=== PATIENT | female | born 1940 | race Caucasian/White ===

== ENCOUNTER 2018-07-23 16:59 | Outpatient (CLI) | payer MEDICARE, BC ==
--- NOTE | 2018-07-23 18:07 | RAD ---
TWO VIEWS CHEST: 07/23/18 HISTORY: Acute bronchospasm, bronchitis. AP and lateral views of the chest is obtained on 07/23/18. Two views chest demonstrate mild cardiomegaly. No evidence of acute intrathoracic abnormality seen. N o evidence of effusions, pneumonia, or pneumothorax seen. IMPRESSION: Cardiomegaly, otherwise unremarkable two views chest. POS: [facility]
== END 2018-07-23 17:00 | disposition home or self-care (01) ==
LOC: NAV RAD 16:59
PROVIDERS: ATTEND Family Medicine
DX: J20.9 Acute bronchitis, unspecified (principal); I51.7 Cardiomegaly
CPT/HCPCS: 71046

== ENCOUNTER 2019-10-03 14:00 | Emergency (ER) | payer MEDICARE, BC | END 2019-10-03 15:18 | disposition home or self-care (01) | LOC: NAV ERS 14:00 | DX: J02.9 Acute pharyngitis, unspecified (principal); E78.5 Hyperlipidemia, unspecified; E66.9 Obesity, unspecified; E78.00 Pure hypercholesterolemia, unspecified; E03.9 Hypothyroidism, unspecified | CPT/HCPCS: 87081; 87430; 99283 ==

== ENCOUNTER 2019-10-06 10:41 | Outpatient (CLI) | payer MEDICARE, BC ==
--- NOTE | 2019-10-06 10:55 | RAD ---
XR Chest Pa Lat STANDARD HISTORY: Bronchitis COMPARISON: 07/23/2018 FINDINGS: The heart size is enlarged. No focal areas of consolidation, pneumothoraces, yeison pulmonar y edema or pleural effusions are seen. There are degenerative changes in the spine. IMPRESSION: No radiographic evidence of acute cardiopulmonary process.
== END 2019-10-06 10:42 | disposition home or self-care (01) ==
LOC: NAV RAD 10:41
PROVIDERS: ATTEND Family Medicine
DX: J20.9 Acute bronchitis, unspecified (principal)
CPT/HCPCS: 71046

== ENCOUNTER 2020-11-26 11:51 | Outpatient (CLI) | payer MEDICARE, BC ==
--- NOTE | 2020-11-26 12:05 | RAD ---
EXAM: Chest PA and lateral: HISTORY: Night sweats COMPARISON: 10/06/2019 FINDINGS: Heart: Normal cardiac silhouette Aorta: Unremarkable Pulmonary vessels: Normal Costophrenic angles: Costophrenic angles are clear. Lungs: No consolidation or masses. Pneumothorax: No pneumothorax Osseous structures: No osseous abnormalities IMPRESSION: No acute cardiopulmonary process.
== END 2020-11-26 11:52 | disposition home or self-care (01) ==
LOC: NAV RAD 11:51
PROVIDERS: ATTEND Family Medicine
DX: R61 Generalized hyperhidrosis (principal)
CPT/HCPCS: 71046

== ENCOUNTER 2023-04-16 09:30 | Emergency (ER) | payer MEDICARE, BC ==
[2023-04-16 09:59] LABS: #Basophils 0.1 thou/uL (0.0-0.2); #Eosinphils 0.3 thou/uL (0.0-0.7); #Lymphocytes 2.6 thou/uL (1.20-3.40); #Monocytes 0.8 thou/uL (0.11-0.59); #Neutrophils 5.4 thou/uL (1.40-6.50); %Basophils 1.5 % (0.0-1.0); %Eosinophils 2.8 % (0.0-10.0); %Lymphocytes 28.1 % (21.0-51.0); %Monocytes 9.2 % (0.0-10.0); %Neutrophils 58.5 % (42.0-75.0); Hemoglobin 11.8 g/dL (12.0-16.0); Mean Corpuscular HGB CONC 32.7 g/dL (32.0-36.0); Mean Corpuscular Hemoglobin 31.2 pg (27.0-31.0); Mean Corpuscular Volume 95.4 fl (78.0-98.0); Mean Platelet Volume 6.4 fL (7.4-10.4); Platelet Count 466 10x3/uL (130-400); RBC Distribution Width 13.1 % (11.5-14.5); Red Blood Cell (RBC) Count 3.79 mill/uL (4.20-5.40); White Blood Cell (WBC) Count 9.2 10x3/uL (4.8-10.8)
[2023-04-16 10:01] LABS: PTT 29.5 sec (22.9-36.1); Prothrombin Time 13.9 sec (12.0-14.7)
[2023-04-16 10:13] LABS: ALT (SGPT) 26 U/L (8-55); AST (SGOT) 32 U/L (5-34); Albumin 3.7 g/dL (3.4-4.8); Alkaline Phosphatase 204 U/L (40-110); Anion Gap 20 mmol/L (10-20); BUN (Urea Nitrogen) 42 mg/dL (9.8-20.1); Bilirubin, Total 0.7 mg/dL (0.2-1.2); CK (CPK) 36 U/L (29-168); Calc. Creatinine Clearance 0 mL/min (70-130); Calcium 9.3 mg/dL (7.8-10.44); Carbon Dioxide 11 mmol/L (23-31); Chloride 106 mmol/L (98-107); Estimated GFR 25; Globulin 3.7 g/dL (2.4-3.5); Glucose 104 mg/dL (83-110); Lipase 252 U/L (8-78); Potassium 5.8 mmol/L (3.5-5.1); Protein, Total 7.4 g/dL (5.8-8.1); Sodium 131 mmol/L (136-145)
[2023-04-16 10:26] LABS: CKMB 1.7 ng/mL (0-6.6)
[2023-04-16] MEDS ORDERED: Dextrose 10% in Water 250 ML ONE (11:07)
[2023-04-16] MEDS ORDERED: Insulin Regular 300 UNITS/3 ML VIAL ONE (11:07)
[2023-04-16] MEDS ORDERED: Sodium Chloride 0.9% 1,000 ML ONE (11:39)
== END 2023-04-16 13:50 | disposition critical access hospital (66) ==
LOC: NAV ERS 09:30
DX: N28.9 Disorder of kidney and ureter, unspecified (principal); R40.4 Transient alteration of awareness; E87.5 Hyperkalemia; R77.8 Other specified abnormalities of plasma proteins; I95.9 Hypotension, unspecified; E03.9 Hypothyroidism, unspecified; E78.00 Pure hypercholesterolemia, unspecified; I10 Essential (primary) hypertension; E66.9 Obesity, unspecified; Z79.899 Other long term (current) drug therapy
CPT/HCPCS: 36416; 71045; 82550; 82553; 83605; 83690; 83735; 84443; 84480; 84484; 85025; 85610; 85730; 87040; 93005; 96361; 96374; J1815; J7050

== ENCOUNTER 2023-05-31 11:35 | Inpatient (IN) | payer MEDICARE, BC ==
[2023-05-31] MEDS ORDERED: Calcium Carbonate 500 MG ChewTAB PO PRN (17:19)
[2023-05-31] MEDS ORDERED: Ondansetron ODT 4 MG TAB PO PRN (17:19)
[2023-05-31] MEDS ORDERED: Senokot S 8.6-50 MG TAB PO PRN (17:19)
[2023-05-31] MEDS ORDERED: Acetaminophen 325 MG TAB PO PRN (17:24)
[2023-05-31] MEDS ORDERED: Nitroglycerin 0.4 MG TAB (25 Tab Bottle) SL PRN (17:24)
[2023-05-31] MEDS ORDERED: Polyethylene Glycol 3350 17 GM Packet PO PRN (17:38)
[2023-05-31] MEDS ORDERED: Melatonin 3 MG TAB PO PRN (17:43)
[2023-05-31] MEDS: Famotidine 20 MG TAB PO SCH (20:33)
[2023-05-31] MEDS ORDERED: Atorvastatin Calcium 20 MG TAB PO SCH ×2 (21:00→21:35)
[2023-05-31] MEDS ORDERED: Hydrocortisone/Pramoxine (Proctofoam HC) 10 GM BOX PR PRN (21:39)
[2023-06-01] MEDS ORDERED: Levothyroxine Sodium 112 MCG TAB PO SCH (06:00)
[2023-06-01 06:04] LABS: #Basophils 0.2 thou/uL (0.0-0.2); #Eosinphils 0.7 thou/uL (0.0-0.7); #Lymphocytes 3.6 thou/uL (1.20-3.40); #Neutrophils 5.8 thou/uL (1.40-6.50); %Basophils 1.6 % (0.0-1.0); %Eosinophils 5.8 % (0.0-10.0); %Monocytes 9.2 % (0.0-10.0); %Neutrophils 51.4 % (42.0-75.0); Hemoglobin 10.3 g/dL (12.0-16.0); Mean Corpuscular HGB CONC 32.4 g/dL (32.0-36.0); Mean Corpuscular Hemoglobin 31.1 pg (27.0-31.0); Mean Corpuscular Volume 96.1 fl (78.0-98.0); Mean Platelet Volume 8.2 fL (7.4-10.4); Platelet Count 198 10x3/uL (130-400); RBC Distribution Width 13.3 % (11.5-14.5); Red Blood Cell (RBC) Count 3.32 mill/uL (4.20-5.40); White Blood Cell (WBC) Count 11.2 10x3/uL (4.8-10.8)
[2023-06-01 06:19] LABS: ALT (SGPT) 11 U/L (8-55); AST (SGOT) 16 U/L (5-34); Albumin 3.1 g/dL (3.4-4.8); Alkaline Phosphatase 108 U/L (40-110); Anion Gap 14 mmol/L (10-20); BUN (Urea Nitrogen) 12 mg/dL (9.8-20.1); Bilirubin, Total 0.4 mg/dL (0.2-1.2); CRP (Inflammatory) 1.46 mg/dL (= or < 0.5); Calc. Creatinine Clearance 92 mL/min (70-130); Carbon Dioxide 23 mmol/L (23-31); Chloride 106 mmol/L (98-107); Estimated GFR 57; Globulin 3.4 g/dL (2.4-3.5); Glucose 89 mg/dL (83-110); Potassium 4.5 mmol/L (3.5-5.1); Protein, Total 6.5 g/dL (5.8-8.1); Sodium 138 mmol/L (136-145)
[2023-06-01] MEDS: Cyanocobalamin (Vitamin B-12) 1,000 MCG TAB PO SCH (08:49)
[2023-06-01] MEDS: Mesalamine DR 400 mg Capsule PO SCH (08:49)
[2023-06-01] MEDS: Loratadine 10 MG TAB PO SCH (08:49)
[2023-06-01] MEDS: Aspirin 81 mg Enteric Coated Tablet PO SCH (08:52)
[2023-06-01] MEDS ORDERED: Polyethylene Glycol 3350 17 GM Packet PO SCH (09:00)
[2023-06-01] MEDS ORDERED: LevoFLOXacin 750 MG TAB PO SCH ×3 (09:00)
[2023-06-01] MEDS ORDERED: Ondansetron ODT 4 MG TAB SL PRN (14:15)
[2023-06-01] MEDS: Atorvastatin Calcium 40 MG TAB PO SCH (20:37)
[2023-06-01] MEDS: Famotidine 20 MG TAB PO SCH (20:37)
[2023-06-02] MEDS: Levothyroxine Sodium 125 MCG TAB PO SCH (05:11)
[2023-06-02] MEDS: Aspirin 81 mg Enteric Coated Tablet PO SCH (09:43)
[2023-06-02] MEDS: Mesalamine DR 400 mg Capsule PO SCH (09:43)
[2023-06-02] MEDS: Loratadine 10 MG TAB PO SCH (09:43)
[2023-06-02] MEDS: Cyanocobalamin (Vitamin B-12) 1,000 MCG TAB PO SCH (09:44)
[2023-06-02] MEDS ORDERED: Losartan 25 MG TAB PO SCH (11:30)
[2023-06-02] MEDS: Famotidine 20 MG TAB PO SCH (20:23)
[2023-06-02] MEDS: Atorvastatin Calcium 40 MG TAB PO SCH (20:24)
[2023-06-02] MEDS: Metoprolol Tartrate 25 MG TAB PO SCH (20:24)
[2023-06-03 01:24] LABS: #Basophils 0.1 thou/uL (0.0-0.2); #Eosinphils 0.7 thou/uL (0.0-0.7); #Lymphocytes 4.3 thou/uL (1.20-3.40); #Monocytes 0.9 thou/uL (0.11-0.59); #Neutrophils 4.2 thou/uL (1.40-6.50); %Basophils 1.3 % (0.0-1.0); %Eosinophils 6.5 % (0.0-10.0); %Lymphocytes 42.1 % (21.0-51.0); %Monocytes 9.1 % (0.0-10.0); Hemoglobin 10.1 g/dL (12.0-16.0); Mean Corpuscular HGB CONC 31.6 g/dL (32.0-36.0); Mean Corpuscular Hemoglobin 30.9 pg (27.0-31.0); Mean Corpuscular Volume 97.8 fl (78.0-98.0); Mean Platelet Volume 6.6 fL (7.4-10.4); Platelet Count 301 10x3/uL (130-400); RBC Distribution Width 13.5 % (11.5-14.5); Red Blood Cell (RBC) Count 3.27 mill/uL (4.20-5.40); White Blood Cell (WBC) Count 10.3 10x3/uL (4.8-10.8)
[2023-06-03] MEDS: LevoFLOXacin 750 MG TAB PO SCH (05:12)
[2023-06-03] MEDS: Levothyroxine Sodium 125 MCG TAB PO SCH (05:12)
[2023-06-03] MEDS: Cyanocobalamin (Vitamin B-12) 1,000 MCG TAB PO SCH (09:00)
[2023-06-03] MEDS: Mesalamine DR 400 mg Capsule PO SCH (09:00)
[2023-06-03] MEDS: Multivitamins CHEW w/Iron Tablet PO SCH (09:01)
[2023-06-03] MEDS: Losartan 25 MG TAB PO SCH (09:01)
[2023-06-03] MEDS: Aspirin 81 mg Enteric Coated Tablet PO SCH (09:01)
[2023-06-03] MEDS: Metoprolol Tartrate 25 MG TAB PO SCH ×2 (09:01→20:37)
[2023-06-03] MEDS: Loratadine 10 MG TAB PO SCH (09:01)
[2023-06-03] MEDS: Atorvastatin Calcium 40 MG TAB PO SCH (20:37)
[2023-06-03] MEDS: Famotidine 20 MG TAB PO SCH (20:37)
[2023-06-04] MEDS: Levothyroxine Sodium 125 MCG TAB PO SCH (06:01)
[2023-06-04] MEDS: LevoFLOXacin 750 MG TAB PO SCH (06:01)
[2023-06-04] MEDS: Multivitamins CHEW w/Iron Tablet PO SCH (08:10)
[2023-06-04] MEDS: Losartan 25 MG TAB PO SCH (08:10)
[2023-06-04] MEDS: Mesalamine DR 400 mg Capsule PO SCH (08:10)
[2023-06-04] MEDS: Aspirin 81 mg Enteric Coated Tablet PO SCH (08:11)
[2023-06-04] MEDS: Loratadine 10 MG TAB PO SCH (08:11)
[2023-06-04] MEDS: Metoprolol Tartrate 25 MG TAB PO SCH ×2 (08:11→21:01)
[2023-06-04] MEDS: Cyanocobalamin (Vitamin B-12) 1,000 MCG TAB PO SCH (08:12)
[2023-06-04] MEDS: Atorvastatin Calcium 40 MG TAB PO SCH (21:01)
[2023-06-04] MEDS: Famotidine 20 MG TAB PO SCH (21:01)
[2023-06-05] MEDS: LevoFLOXacin 750 MG TAB PO SCH (05:48)
[2023-06-05] MEDS: Levothyroxine Sodium 125 MCG TAB PO SCH (06:06)
[2023-06-05] MEDS: Cyanocobalamin (Vitamin B-12) 1,000 MCG TAB PO SCH (09:28)
[2023-06-05] MEDS: Multivitamins CHEW w/Iron Tablet PO SCH (09:28)
[2023-06-05] MEDS: Losartan 25 MG TAB PO SCH (09:29)
[2023-06-05] MEDS: Mesalamine DR 400 mg Capsule PO SCH (09:29)
[2023-06-05] MEDS: Aspirin 81 mg Enteric Coated Tablet PO SCH (09:29)
[2023-06-05] MEDS: Metoprolol Tartrate 25 MG TAB PO SCH ×2 (09:29→21:09)
[2023-06-05] MEDS: Loratadine 10 MG TAB PO SCH (09:29)
[2023-06-05] MEDS: Atorvastatin Calcium 40 MG TAB PO SCH (21:09)
[2023-06-05] MEDS: Famotidine 20 MG TAB PO SCH (21:09)
[2023-06-06 06:00] LABS: #Basophils 0.1 thou/uL (0.0-0.2); #Eosinphils 0.6 thou/uL (0.0-0.7); #Lymphocytes 3.1 thou/uL (1.20-3.40); #Monocytes 0.8 thou/uL (0.11-0.59); %Basophils 0.8 % (0.0-1.0); %Eosinophils 5.9 % (0.0-10.0); %Lymphocytes 32.4 % (21.0-51.0); %Monocytes 7.9 % (0.0-10.0); Hemoglobin 9.5 g/dL (12.0-16.0); Mean Corpuscular HGB CONC 31.2 g/dL (32.0-36.0); Mean Corpuscular Hemoglobin 30.7 pg (27.0-31.0); Mean Corpuscular Volume 98.5 fl (78.0-98.0); Mean Platelet Volume 6.8 fL (7.4-10.4); Platelet Count 331 10x3/uL (130-400); RBC Distribution Width 13.9 % (11.5-14.5); Red Blood Cell (RBC) Count 3.08 mill/uL (4.20-5.40); White Blood Cell (WBC) Count 9.5 10x3/uL (4.8-10.8)
[2023-06-06] MEDS: Levothyroxine Sodium 125 MCG TAB PO SCH (06:08)
[2023-06-06] MEDS: Multivitamins CHEW w/Iron Tablet PO SCH (08:50)
[2023-06-06] MEDS: Mesalamine DR 400 mg Capsule PO SCH (08:50)
[2023-06-06] MEDS: Losartan 25 MG TAB PO SCH (08:51)
[2023-06-06] MEDS: Cyanocobalamin (Vitamin B-12) 1,000 MCG TAB PO SCH (08:51)
[2023-06-06] MEDS: Aspirin 81 mg Enteric Coated Tablet PO SCH (08:51)
[2023-06-06] MEDS: Metoprolol Tartrate 25 MG TAB PO SCH ×2 (08:51→21:23)
[2023-06-06] MEDS: Loratadine 10 MG TAB PO SCH (08:52)
[2023-06-06] MEDS ORDERED: Losartan 25 MG TAB PO SCH (17:15)
[2023-06-06] MEDS: Atorvastatin Calcium 40 MG TAB PO SCH (21:23)
[2023-06-06] MEDS: Famotidine 20 MG TAB PO SCH (21:24)
[2023-06-07] MEDS: Levothyroxine Sodium 125 MCG TAB PO SCH (06:03)
[2023-06-07 06:09] LABS: Anion Gap 15 mmol/L (10-20); BUN (Urea Nitrogen) 13 mg/dL (9.8-20.1); Calc. Creatinine Clearance 76 mL/min (70-130); Calcium 9.2 mg/dL (7.8-10.44); Carbon Dioxide 22 mmol/L (23-31); Chloride 105 mmol/L (98-107); Estimated GFR 47; Glucose 83 mg/dL (83-110); Potassium 3.8 mmol/L (3.5-5.1); Sodium 138 mmol/L (136-145)
[2023-06-07 07:06] LABS: #Basophils 0.1 thou/uL (0.0-0.2); #Eosinphils 0.6 thou/uL (0.0-0.7); #Lymphocytes 2.6 thou/uL (1.20-3.40); #Monocytes 0.7 thou/uL (0.11-0.59); #Neutrophils 4.1 thou/uL (1.40-6.50); %Basophils 1.5 % (0.0-1.0); %Eosinophils 7.8 % (0.0-10.0); %Lymphocytes 32.3 % (21.0-51.0); %Monocytes 8.2 % (0.0-10.0); %Neutrophils 50.3 % (42.0-75.0); Hemoglobin 10.4 g/dL (12.0-16.0); Mean Corpuscular Hemoglobin 30.9 pg (27.0-31.0); Mean Corpuscular Volume 99.6 fl (78.0-98.0); Mean Platelet Volume 6.6 fL (7.4-10.4); Platelet Count 209 10x3/uL (130-400); Red Blood Cell (RBC) Count 3.36 mill/uL (4.20-5.40); White Blood Cell (WBC) Count 8.1 10x3/uL (4.8-10.8)
[2023-06-07] MEDS: Multivitamins CHEW w/Iron Tablet PO SCH (08:59)
[2023-06-07] MEDS: Cyanocobalamin (Vitamin B-12) 1,000 MCG TAB PO SCH (08:59)
[2023-06-07] MEDS: Mesalamine DR 400 mg Capsule PO SCH (08:59)
[2023-06-07] MEDS: Metoprolol Tartrate 25 MG TAB PO SCH ×2 (09:00→20:47)
[2023-06-07] MEDS ORDERED: Ergocalciferol 1.25 MG(50,000 UNITS) CAP PO SCH (09:00)
[2023-06-07] MEDS: Losartan 25 MG TAB PO SCH (09:00)
[2023-06-07] MEDS: Loratadine 10 MG TAB PO SCH (09:01)
[2023-06-07] MEDS: Aspirin 81 mg Enteric Coated Tablet PO SCH (09:01)
[2023-06-07] MEDS: Atorvastatin Calcium 40 MG TAB PO SCH (20:48)
[2023-06-07] MEDS: Famotidine 20 MG TAB PO SCH (20:48)
[2023-06-08] MEDS: Levothyroxine Sodium 125 MCG TAB PO SCH (05:19)
[2023-06-08 05:36] VITALS: BMI 49.6
[2023-06-08] MEDS: Mesalamine DR 400 mg Capsule PO SCH (09:09)
[2023-06-08] MEDS: Aspirin 81 mg Enteric Coated Tablet PO SCH (09:10)
[2023-06-08] MEDS: Multivitamins CHEW w/Iron Tablet PO SCH (09:10)
[2023-06-08] MEDS: Cyanocobalamin (Vitamin B-12) 1,000 MCG TAB PO SCH (09:10)
[2023-06-08] MEDS: Loratadine 10 MG TAB PO SCH (09:10)
[2023-06-08] MEDS: Losartan 25 MG TAB PO SCH (09:10)
[2023-06-08] MEDS: Metoprolol Tartrate 25 MG TAB PO SCH ×2 (09:10→20:45)
[2023-06-08] MEDS: Atorvastatin Calcium 40 MG TAB PO SCH (20:45)
[2023-06-08] MEDS: Famotidine 20 MG TAB PO SCH (20:45)
[2023-06-09] MEDS: Levothyroxine Sodium 125 MCG TAB PO SCH (05:59)
[2023-06-09 07:09] LABS: #Basophils 0.1 thou/uL (0.0-0.2); #Eosinphils 0.7 thou/uL (0.0-0.7); #Lymphocytes 3.1 thou/uL (1.20-3.40); #Monocytes 0.8 thou/uL (0.11-0.59); #Neutrophils 3.5 thou/uL (1.40-6.50); %Basophils 1.6 % (0.0-1.0); %Eosinophils 8.7 % (0.0-10.0); %Lymphocytes 37.6 % (21.0-51.0); %Monocytes 9.7 % (0.0-10.0); %Neutrophils 42.5 % (42.0-75.0); Hemoglobin 9.8 g/dL (12.0-16.0); Mean Corpuscular HGB CONC 31.5 g/dL (32.0-36.0); Mean Corpuscular Hemoglobin 31.2 pg (27.0-31.0); Mean Corpuscular Volume 98.9 fl (78.0-98.0); Mean Platelet Volume 6.5 fL (7.4-10.4); Platelet Count 344 10x3/uL (130-400); Red Blood Cell (RBC) Count 3.14 mill/uL (4.20-5.40); White Blood Cell (WBC) Count 8.2 10x3/uL (4.8-10.8)
[2023-06-09 07:21] LABS: Anion Gap 12 mmol/L (10-20); BUN (Urea Nitrogen) 13 mg/dL (9.8-20.1); Calc. Creatinine Clearance 90 mL/min (70-130); Calcium 9.2 mg/dL (7.8-10.44); Carbon Dioxide 26 mmol/L (23-31); Chloride 106 mmol/L (98-107); Estimated GFR 57; Glucose 83 mg/dL (83-110); Potassium 3.9 mmol/L (3.5-5.1); Sodium 140 mmol/L (136-145)
[2023-06-09] MEDS: Metoprolol Tartrate 25 MG TAB PO SCH ×2 (09:09→20:54)
[2023-06-09] MEDS: Losartan Potassium 50 MG TAB PO SCH (09:10)
[2023-06-09] MEDS: Mesalamine DR 400 mg Capsule PO SCH (09:11)
[2023-06-09] MEDS: Aspirin 81 mg Enteric Coated Tablet PO SCH (09:12)
[2023-06-09] MEDS: Cyanocobalamin (Vitamin B-12) 1,000 MCG TAB PO SCH (09:12)
[2023-06-09] MEDS: Loratadine 10 MG TAB PO SCH (09:13)
[2023-06-09] MEDS: Multivitamins CHEW w/Iron Tablet PO SCH (09:23)
[2023-06-09] MEDS: Famotidine 20 MG TAB PO SCH (20:54)
[2023-06-09] MEDS: Atorvastatin Calcium 40 MG TAB PO SCH (20:54)
[2023-06-10] MEDS: Levothyroxine Sodium 125 MCG TAB PO SCH (06:06)
[2023-06-10] MEDS: Metoprolol Tartrate 25 MG TAB PO SCH ×2 (08:25→20:37)
[2023-06-10] MEDS: Mesalamine DR 400 mg Capsule PO SCH (08:25)
[2023-06-10] MEDS: Aspirin 81 mg Enteric Coated Tablet PO SCH (08:25)
[2023-06-10] MEDS: Multivitamins CHEW w/Iron Tablet PO SCH (08:25)
[2023-06-10] MEDS: Losartan Potassium 50 MG TAB PO SCH (08:25)
[2023-06-10] MEDS: Cyanocobalamin (Vitamin B-12) 1,000 MCG TAB PO SCH (08:26)
[2023-06-10] MEDS: Loratadine 10 MG TAB PO SCH (08:26)
[2023-06-10] MEDS: Atorvastatin Calcium 40 MG TAB PO SCH (20:37)
[2023-06-10] MEDS: Famotidine 20 MG TAB PO SCH (20:37)
[2023-06-11] MEDS: Levothyroxine Sodium 125 MCG TAB PO SCH (05:39)
[2023-06-11] MEDS: Cyanocobalamin (Vitamin B-12) 1,000 MCG TAB PO SCH (08:15)
[2023-06-11] MEDS: Multivitamins CHEW w/Iron Tablet PO SCH (08:15)
[2023-06-11] MEDS: Aspirin 81 mg Enteric Coated Tablet PO SCH (08:15)
[2023-06-11] MEDS: Losartan Potassium 50 MG TAB PO SCH (08:15)
[2023-06-11] MEDS: Loratadine 10 MG TAB PO SCH (08:15)
[2023-06-11] MEDS: Mesalamine DR 400 mg Capsule PO SCH (08:15)
[2023-06-11] MEDS: Metoprolol Tartrate 25 MG TAB PO SCH (08:15)
[2023-06-11 08:50] VITALS: TEMP 98.1
[2023-06-11 09:24] VITALS: BP 154/67
== END 2023-06-11 11:50 | disposition home or self-care (01) | DRG 947 ==
LOC: NAV ACUTE 16:41
PROVIDERS: ADMIT Student in an Organized Health Care Education/Training Program; ATTEND Family Medicine
DX: R53.81 Other malaise (principal); I21.A1 Myocardial infarction type 2; I50.32 Chronic diastolic (congestive) heart failure; Z68.42 Body mass index [BMI] 45.0-49.9, adult; M62.58 Muscle wasting and atrophy, not elsewhere classified, other site; I11.0 Hypertensive heart disease with heart failure; G47.33 Obstructive sleep apnea (adult) (pediatric); E03.9 Hypothyroidism, unspecified; E78.5 Hyperlipidemia, unspecified; E66.01 Morbid (severe) obesity due to excess calories; Z96.653 Presence of artificial knee joint, bilateral; Z96.642 Presence of left artificial hip joint; K21.9 Gastro-esophageal reflux disease without esophagitis; J30.2 Other seasonal allergic rhinitis; Z88.6 Allergy status to analgesic agent; Z88.8 Allergy status to other drugs, medicaments and biological substances; Z88.0 Allergy status to penicillin; Z79.82 Long term (current) use of aspirin; Z79.890 Hormone replacement therapy; Z79.899 Other long term (current) drug therapy; Z90.49 Acquired absence of other specified parts of digestive tract; D64.9 Anemia, unspecified
CPT/HCPCS: 36415; 80048; 80053; 84145; 84439; 84443; 85025; 85520; 86140; 87040; J1650

== ENCOUNTER 2024-12-01 15:26 | Outpatient (CLI) | payer MEDICARE, BC | END 2024-12-01 15:27 | disposition home or self-care (01) | LOC: NAV RAD 15:26 | PROVIDERS: ATTEND Nurse Practitioner Family | DX: J40 Bronchitis, not specified as acute or chronic (principal) | CPT/HCPCS: 71046 ==

== ENCOUNTER 2025-10-30 10:34 | Emergency (ER) | payer MEDICARE, BC | END 2025-10-30 12:54 | disposition home or self-care (01) | LOC: NAV ERS 10:34 | DX: H65.93 Unspecified nonsuppurative otitis media, bilateral (principal); R05.9 Cough, unspecified; E03.9 Hypothyroidism, unspecified; E78.00 Pure hypercholesterolemia, unspecified; I10 Essential (primary) hypertension; Z79.82 Long term (current) use of aspirin; Z79.899 Other long term (current) drug therapy | CPT/HCPCS: 71045 ==

== ENCOUNTER 2025-11-02 15:54 | Emergency (ER) | payer MEDICARE, BC | END 2025-11-02 19:05 | disposition home or self-care (01) | LOC: NAV ERS 15:54 | DX: S83.92XA Sprain of unspecified site of left knee, initial encounter (principal); S86.912A Strain of unspecified muscle(s) and tendon(s) at lower leg level, left leg, initial encounter; I10 Essential (primary) hypertension; E66.9 Obesity, unspecified; E03.9 Hypothyroidism, unspecified; Z79.82 Long term (current) use of aspirin; Z79.899 Other long term (current) drug therapy; W01.0XXA Fall on same level from slipping, tripping and stumbling without subsequent striking against object, initial encounter ==